=== PATIENT | male | born 1960 | race Two or more races ===

== ENCOUNTER 2020-01-21 19:35 | Inpatient (IN) | payer MEDICAID, OTHER ==
[~2020-01-21] VITALS: Ht 167.6 cm; Wt 81.6 kg
[2020-01-21 23:28] LABS: Basophils # (auto) 0 10 ^3/uL (0-0.2); Basophils % (auto) 0.4 % (0.0-2.0); Eosinophils # (auto) 0.1 10 ^3/uL (0-0.8); Hematocrit 44.1 % (41.0-53.0); Hemoglobin 14.5 g/dL (13.5-17.5); Lymphocytes # (auto) 0.6 10 ^3/uL (0.4-5.4); Lymphocytes % (auto) 5.4 % (10.0-50.0); Mean Corpuscular Hemoglobin 30.3 pg (28.0-32.0); Mean Corpuscular Hgb Conc. 32.9 g/dL (32.0-36.0); Mean Corpuscular Volume 92.3 fL (80.0-100.0); Monocytes # (auto) 0.6 10 ^3/uL (0-1.3); Monocytes % (auto) 5.5 % (0.0-12.0); Neutrophils # (auto) 10.3 10 ^3/uL (1.6-8.6); Neutrophils % (auto) 87.7 % (37.0-80.0); Platelet Count (auto) 319 10^3/uL (140-450); Red Blood Cells 4.78 10^6/uL (4.5-5.90); Red Cell Distribution Width 13.3 % (11.8-14.3); White Blood Cell 11.8 10^3/uL (4.4-10.8)
[2020-01-21 23:45] LABS: INR 1.07 (0.9-1.15); Partial Thromboplastin Time 27.1 sec (23.64-32.05)
[2020-01-21 23:49] LABS: Potassium 3.6 mmol/L (3.5-5.1)
[2020-01-21 23:52] LABS: Albumin 2.6 g/dL (3.4-5.0); Calcium 8.7 mg/dL (8.5-10.1)
[2020-01-22 00:08] LABS: Bilirubin, Total 0.5 mg/dL (0.2-1.0); Total Protein 7.7 g/dL (6.4-8.2)
[2020-01-22] MEDS ORDERED: DexAMETHasone SOD PHOS 10MG/1ML VIAL INJ IM ONE (08:15)
[2020-01-22] MEDS ORDERED: DOXYCYCLINE 100 MG TAB/CAP PO ONE (08:15)
[2020-01-22] MEDS ORDERED: ACETAMINOPHEN 325 MG TAB PO ONE (08:30)
[2020-01-22] MEDS ORDERED: NITROGLYCERIN 0.4 MG SL TAB SL PRN (10:15)
[2020-01-22] MEDS ORDERED: ACETAMINOPHEN 500 MG TAB PO ONE (10:15)
[2020-01-22] MEDS ORDERED: MORPHINE SULF INJ 2 MG/ML SYRINGE 1ML IV PRN (10:15)
[2020-01-22] MEDS ORDERED: cefTRIAXone 1GM/50ML D5W 50 ML IV ONE (10:15)
[2020-01-22] MEDS ORDERED: TEMAZEPAM 15 MG CAP PO PRN (11:15)
[2020-01-22] MEDS ORDERED: traMADol HCL 50 MG TAB PO PRN (11:15)
[2020-01-22] MEDS ORDERED: PROMETHAZINE HCL 25 MG/ML 1ML IV PRN (11:15)
[2020-01-22] MEDS ORDERED: LACTULOSE 20Gm/30ML SOLN PO PRN (11:15)
[2020-01-22] MEDS ORDERED: ACETAMINOPHEN 500 MG TAB PO PRN (11:15)
[2020-01-22] MEDS: levoFLOXacin 500MG 100 ML IV SCH (11:59)
[2020-01-22] MEDS: ENOXAPARIN SOD 40 MG/0.4 ML SYRINGE SC SCH ×2 (11:59→21:42)
--- NOTE | 2020-01-22 13:20 | NUR ---
Telemetry admit from [facility] admitted to Telemetry unit after SBAR received. Patient oriented to ARIANNA OSMAN RN primary RN, unit, room, bed, and unit policies regarding patient care and visiting hours. Patient now on continuous telemetry monitoring, tele box # 13 and telemetry reading on arrival to unit is SR. Patient placed on bedside oxygen, weighed by bedscale and encouraged to call if they need something. All questions and concerns addressed, patient verbalized understanding.
[2020-01-22] MEDS: ALBUTEROL SULF HFA 90MCG INH 200DOSE IN SCH ×2 (14:00→22:00)
--- NOTE | 2020-01-22 15:31 | NUR ---
Respiratory note: PT MDI 1400 TX MISSED. MDI NOT AVAILABLE AND THERAPIST UNAVAILABLE DUE TO CODE BLUE. PHARMACY CALLED AND MDI ORDERED.
[2020-01-22 16:24] VITALS: BP 116/78
--- NOTE | 2020-01-22 19:20 | NUR ---
Opening Shift Note Received report from pamela South RN. Assumed care of patient, awake and alert. No S/S of distress/SOB or pain. Saturating at 92% on 5LNC. Instructed on POC and to call for assist PRN, will continue to monitor for changes Q1hr and PRN. Bed placed in lowest position and call light within reach.
[2020-01-22 20:00] VITALS: BP 132/69
[2020-01-22] MEDS: FAMOTIDINE 20 MG TAB PO SCH (21:42)
[2020-01-22] MEDS: DexAMETHasone SOD PHOS 4 MG/1ML SDV INJ IV SCH (21:42)
[2020-01-22 22:00] VITALS: BP 132/69
[2020-01-22] MEDS ORDERED: BUDESONIDE (INHALATION) 0.5 MG/2 ML NEB NEB SCH ×2 (22:00)
[2020-01-23 01:10] VITALS: BP 132/69
--- NOTE | 2020-01-23 04:42 | NUR ---
ROUNDS Patient is resting in bed alert and awake, no distress noted, saturating at 93% on 5LNC. Patient denies pain.
[2020-01-23 05:00] VITALS: BP 127/65
[2020-01-23] MEDS: ALBUTEROL SULF HFA 90MCG INH 200DOSE IN SCH ×3 (07:40→22:46)
--- NOTE | 2020-01-23 07:40 | NUR ---
Respiratory note: MDI GIVEN AND TOLERATED WELL NO ADVERSE REACTION NOTED. HR 61, RR 16, SPO2 94% OM 5L N/C. BS ARE CLEAR AND DIMINISHED.
[2020-01-23 08:28] LABS: Basophils # (auto) 0 10 ^3/uL (0-0.2); Basophils % (auto) 0.4 % (0.0-2.0); Eosinophils # (auto) 0 10 ^3/uL (0-0.8); Eosinophils % (auto) 0.1 % (0.0-7.0); Hematocrit 44.9 % (41.0-53.0); Hemoglobin 14.9 g/dL (13.5-17.5); Lymphocytes % (auto) 10.5 % (10.0-50.0); Mean Corpuscular Hemoglobin 30.4 pg (28.0-32.0); Mean Corpuscular Hgb Conc. 33.2 g/dL (32.0-36.0); Mean Corpuscular Volume 91.5 fL (80.0-100.0); Monocytes % (auto) 10.7 % (0.0-12.0); Neutrophils # (auto) 7.2 10 ^3/uL (1.6-8.6); Neutrophils % (auto) 78.3 % (37.0-80.0); Nucleated Red Blood Cells % 0.2 %; Platelet Count (auto) 388 10^3/uL (140-450); Red Blood Cells 4.91 10^6/uL (4.5-5.90); Red Cell Distribution Width 12.9 % (11.8-14.3); White Blood Cell 9.1 10^3/uL (4.4-10.8)
[2020-01-23 08:50] LABS: Albumin 2.4 g/dL (3.4-5.0)
[2020-01-23 08:55] LABS: BUN/Creatinine Ratio 24.4; Bilirubin, Total 0.4 mg/dL (0.2-1.0); Total Protein 7.5 g/dL (6.4-8.2)
[2020-01-23 09:00] VITALS: BP 137/74
[2020-01-23] MEDS: DexAMETHasone SOD PHOS 4 MG/1ML SDV INJ IV SCH ×2 (10:03→21:37)
[2020-01-23] MEDS: ZINC SULFATE 220mg CAP or TAB PO SCH (10:04)
[2020-01-23] MEDS: ASCORBIC ACID 1,000 MG TAB PO SCH (10:04)
[2020-01-23] MEDS: levoFLOXacin 500MG 100 ML IV SCH (10:04)
[2020-01-23] MEDS: FAMOTIDINE 20 MG TAB PO SCH ×2 (10:04→21:37)
[2020-01-23] MEDS: CHOLECALCIFEROL (VITD3) 1,000UNIT=25mCg TAB PO SCH (10:04)
[2020-01-23] MEDS: ASPirin 81 mg TAB PO SCH (10:04)
[2020-01-23] MEDS: ENOXAPARIN SOD 40 MG/0.4 ML SYRINGE SC SCH ×2 (10:05→21:37)
[2020-01-23] MEDS: ENALAPRIL MALEATE 2.5 MG TAB PO SCH (10:07)
[2020-01-23 13:00] VITALS: BP 117/73
--- NOTE | 2020-01-23 14:20 | NUR ---
Respiratory note: MDI GIVEN AND TOLERATED WELL NO ADVERSE REACTION NOTED. HR 66, RR 16, SPO2 94% OM 5L N/C. BS ARE CLEAR AND DIMINISHED.
[2020-01-23 17:42] VITALS: BP 110/68
[2020-01-23] MEDS: AZITHROMYCIN 500MG/ 250ML 250 ML IV SCH (18:17)
--- NOTE | 2020-01-23 19:31 | NUR ---
Opening Shift Note Assumed care of patient after receiving report. Patient is awake and alert with no S/S of distress/SOB or pain. Call light within reach, bed in lowest position x2 side rails, HOB semi fowlers. Instructed on POC and to callfor assist PRN, will continue to monitor for changes Q1hr and PRN.
[2020-01-23 22:00] VITALS: BP 122/65
[2020-01-24 05:00] VITALS: BP 123/75
[2020-01-24] MEDS: ALBUTEROL SULF HFA 90MCG INH 200DOSE IN SCH ×3 (08:00→22:20)
[2020-01-24 09:00] VITALS: BP 113/69
[2020-01-24] MEDS: AZITHROMYCIN 500MG/ 250ML 250 ML IV SCH (09:02)
[2020-01-24] MEDS: DexAMETHasone SOD PHOS 4 MG/1ML SDV INJ IV SCH ×2 (09:02→21:25)
[2020-01-24] MEDS: ENOXAPARIN SOD 40 MG/0.4 ML SYRINGE SC SCH ×2 (09:02→21:26)
[2020-01-24] MEDS: FAMOTIDINE 20 MG TAB PO SCH ×2 (09:04→21:27)
[2020-01-24] MEDS: ZINC SULFATE 220mg CAP or TAB PO SCH (09:04)
[2020-01-24] MEDS: ASPirin 81 mg TAB PO SCH (09:04)
[2020-01-24] MEDS: ASCORBIC ACID 1,000 MG TAB PO SCH (09:04)
[2020-01-24] MEDS: CHOLECALCIFEROL (VITD3) 1,000UNIT=25mCg TAB PO SCH (09:05)
[2020-01-24] MEDS: ENALAPRIL MALEATE 2.5 MG TAB PO SCH (09:10)
[2020-01-24 13:00] VITALS: BP 147/80
[2020-01-24 17:00] VITALS: BP 105/85
--- NOTE | 2020-01-24 19:20 | NUR ---
Opening Shift Note Assumed care of patient after receiving report from KIKE Vazquez. Patient is awake and alert, with no S/S of distress/SOB or pain. Patient on 4L via NC. Call light within reach, bed in lowest position x2 side rails, HOB semi Fowlers. Instructed on POC and to call for assist PRN, will continue to monitor for changes Q1hr and PRN.
[2020-01-24 22:00] VITALS: BP 124/71
[2020-01-25 05:04] VITALS: BP 133/85
[2020-01-25] MEDS: ALBUTEROL SULF HFA 90MCG INH 200DOSE IN SCH ×3 (06:00→22:00)
--- NOTE | 2020-01-25 07:35 | NUR ---
Opening Shift note Assumed care of patient from NOC RN. Patient is aox4 no s/s of distress noted. Bed is in lowest locked position, side rails up x2, and call light is within reach. Updated patient on plan of care and patient verbalized understanding. Will continue to monitor q1hr and PRN.
[2020-01-25 09:00] VITALS: BP 134/82
--- NOTE | 2020-01-25 09:52 | NUR ---
Received call from MD Received call from Dr. Trujillo, new orders received, and per MD contact pediatric occupational therapist regarding clearance. Will follow through,will continue care.
[2020-01-25] MEDS: AZITHROMYCIN 500MG/ 250ML 250 ML IV SCH (10:50)
[2020-01-25] MEDS: CHOLECALCIFEROL (VITD3) 1,000UNIT=25mCg TAB PO SCH (10:52)
[2020-01-25] MEDS: ZINC SULFATE 220mg CAP or TAB PO SCH (10:52)
[2020-01-25] MEDS: ASCORBIC ACID 1,000 MG TAB PO SCH (10:52)
[2020-01-25] MEDS: ASPirin 81 mg TAB PO SCH (10:54)
[2020-01-25] MEDS: DexAMETHasone SOD PHOS 4 MG/1ML SDV INJ IV SCH ×2 (10:55→22:05)
[2020-01-25] MEDS: ENALAPRIL MALEATE 2.5 MG TAB PO SCH (10:55)
[2020-01-25] MEDS: ENOXAPARIN SOD 40 MG/0.4 ML SYRINGE SC SCH ×2 (10:55→22:05)
[2020-01-25] MEDS: FAMOTIDINE 20 MG TAB PO SCH ×2 (10:58→22:05)
--- NOTE | 2020-01-25 11:50 | NUR ---
Called Called Dr. Hanson, no answer left message. Awaiting call back.
--- NOTE | 2020-01-25 12:42 | NUR ---
Est energy needs [id number] kcal (20-25 kcal/kg BW 81.6kg) Est protein needs 65-82g (0.8-1g/kg BW 81.6g) Will reassess prn. Addendum: 01/25/20 at [address] Amended: Links added.
[2020-01-25 12:46] VITALS: BP 126/78
--- NOTE | 2020-01-25 13:30 | NUR ---
Ambulated patient Ambulated patient with 3L O2 via nasal canula and patient's oxygen saturation was 92-94%. Ambulated patient with out O2 on and patients oxygen was 83-87%, and patient became short of breath. Will notify MD, will continue care.
--- NOTE | 2020-01-25 16:02 | NUR ---
Received call from electronics worker Per Jas[facility] SW patients O2 will not be delivered until tomorrow and attending physician needs to sign paperwork for the O2. Will notify
--- NOTE | 2020-01-25 16:34 | NUR ---
Assessment Patient is a 59- year-old male. Assessment was completed with patient Khalida Ph:). Per Khalida prior to admission patient lived home with her and function independently. Per Ada patient can care for his own ADLs. Per Ada patient does not have any medical equipment now. Per Ada patient will return to his prior living arrangements post discharge and [facility] transportation needs to be arranged upon d/c day. Patient PCP is in [facility]. Advise Khalida there is a social service consult for home oxygen. Informed Khalida clinical information will be faxed to [employer]. Advised Khalida for patient to follow up with his primary doctor. Informed Khalida she has the right to participate in all discharge planning. Khalida verbalized understanding and agreed to discharge plan. Faxed clinical information to [employer] and [facility]. Martin Murray with [employer] they will deliver oxygen to the [facility] tomorrow morning. Obtain authorization from [facility] [id number]. Informed KIKE Ruiz. Addendum: 01/25/20 at 1635 by EZEQUIEL LIN Amended: Links added.
[2020-01-25 16:45] VITALS: BP 132/72
--- NOTE | 2020-01-25 19:00 | NUR ---
End of shift note Endorsed care to NOC RN Charles. No signs and symptoms of distress noted.
--- NOTE | 2020-01-25 19:30 | NUR ---
Opening Shift Note Assumed care of patient, awake and alert. No S/S of distress/SOB or pain. Instructed on POC and to call for assist PRN, will continue to monitor for changes Q1hr and PRN.
[2020-01-25 22:00] VITALS: BP 103/64
--- NOTE | 2020-01-26 02:00 | NUR ---
Patient off nasal canula for over 2 hours and tolerating well. O2 saturation was 96%. Patient educated on breathing exercises.
[2020-01-26 03:20] VITALS: BP 103/64
[2020-01-26 05:00] VITALS: BP 114/78
[2020-01-26 06:12] LABS: Hematocrit 45.2 % (41.0-53.0); Mean Corpuscular Hemoglobin 30.3 pg (28.0-32.0); Mean Corpuscular Hgb Conc. 33.3 g/dL (32.0-36.0); Mean Corpuscular Volume 91.1 fL (80.0-100.0); Platelet Count (auto) 442 10^3/uL (140-450); Red Blood Cells 4.96 10^6/uL (4.5-5.90); Red Cell Distribution Width 12.8 % (11.8-14.3); White Blood Cell 12.1 10^3/uL (4.4-10.8)
[2020-01-26 06:34] LABS: Albumin 2.5 g/dL (3.4-5.0); Calcium 8.8 mg/dL (8.5-10.1); Potassium 4.3 mmol/L (3.5-5.1)
[2020-01-26 06:39] LABS: Bilirubin, Total 0.4 mg/dL (0.2-1.0); Total Protein 6.8 g/dL (6.4-8.2)
[2020-01-26 06:45] LABS: Band Neutrophils % (manual) 0; Basophils % (manual) 0 (0.0-2.0); Blast Cells 0; Eosinophils % (manual) 0 (0-7); Metamyelocytes % 0; Myelocytes % 0; Promyelocytes % 0; Reactive Lymphocytes 0
--- NOTE | 2020-01-26 07:30 | NUR ---
Opening Shift note Assumed care of patient from NOC RN Charles. Patient is aox4 no sings and symptoms of distress noted. Bed is in lowest locked position, side rails up x2, and call light is within reach. Updated patient on plan of care and patient verbalized understanding. Will continue to monitor q1hr and PRN.
[2020-01-26 07:42] LABS: Lymphocytes % (manual) 7 (10.0-50.0); Monocytes % (manual) 7 (0-12)
[2020-01-26] MEDS: ALBUTEROL SULF HFA 90MCG INH 200DOSE IN SCH ×2 (07:50→14:00)
[2020-01-26 08:30] VITALS: BP 129/79
[2020-01-26] MEDS: AZITHROMYCIN 500MG/ 250ML 250 ML IV SCH (09:48)
[2020-01-26] MEDS: DexAMETHasone SOD PHOS 4 MG/1ML SDV INJ IV SCH (09:48)
[2020-01-26] MEDS: FAMOTIDINE 20 MG TAB PO SCH (09:49)
[2020-01-26] MEDS: ASPirin 81 mg TAB PO SCH (09:49)
[2020-01-26] MEDS: ZINC SULFATE 220mg CAP or TAB PO SCH (09:49)
[2020-01-26] MEDS: ENALAPRIL MALEATE 2.5 MG TAB PO SCH (09:50)
[2020-01-26] MEDS: CHOLECALCIFEROL (VITD3) 1,000UNIT=25mCg TAB PO SCH (09:50)
[2020-01-26] MEDS: ASCORBIC ACID 1,000 MG TAB PO SCH (09:50)
[2020-01-26] MEDS: ENOXAPARIN SOD 40 MG/0.4 ML SYRINGE SC SCH (09:51)
--- NOTE | 2020-01-26 10:15 | NUR ---
Received call from MD Received call from Dr. Ronnie france D/C. Updated MD that o2 still needs to be delivered before D/C. Per MD contact Dr. Lb france D/C outpatient follow ups. Will follow through, will continue care.
--- NOTE | 2020-01-26 10:19 | NUR ---
Mikey Hoskins message to Dr. Lb rosa D/CKasia Awaiting call back. Addendum: 01/26/20 at 1022 by NIKOS PROCTOR RN Title should read Mikey CISNEROS
--- NOTE | 2020-01-26 11:16 | NUR ---
Received call back from Received call back from Dr. Asher. Per MD patient can follow up as outpatient at a later time, and to continue home medications. Will notify attending MD Trujillo and will continue care.
--- NOTE | 2020-01-26 11:30 | NUR ---
Called attending MD Left messaged for Dr. Trujillo regarding update from . No new orders received, will continue care.
--- NOTE | 2020-01-26 12:12 | NUR ---
Received call from medical social consultant Received call from [employer]as[employer] medical social consultant, per Jasmina patients oxygen delivery is still pending, and patient needs a home health safety evaluation. Awaiting O2 delivery to D/C patient. Will continue care.
[2020-01-26 13:00] VITALS: BP 129/77
[2020-01-26 13:35] VITALS: BP 125/81
--- NOTE | 2020-01-26 15:16 | NUR ---
Returned called to [employer]. Returned call to Aide from [employer]. Faxed needed paperwork to her. . .
--- NOTE | 2020-01-26 16:34 | NUR ---
D/C Planning Received a followed up called from [facility] with [facility] advising me they needed to speak to bedside nurse regarding oxygen notes. Provided [facility] with nurse ext. [phone]. Received a second follow up called from [facility] advising me oxygen has been deliver to front lobby. Transportation has been arranged with [facility] [phone] with a 17:30 case picker time via gurney and oxygen. Transportation is aware patient is (+) COVID. RN Rosendo was informed.
[2020-01-26 16:35] VITALS: BP 125/81
--- NOTE | 2020-01-26 18:58 | NUR ---
Spoke to transportation Spoke with Rodger from [employer]. Per Rodger patient was not scheduled for fruit or nut picker, and did not have patient listed for fruit or nut picker. Informed Rodger that transportation was arranged by social worker school [employer]. Provided Rodger with authorization number from [facility] which is [id number]. Per Rodger he is unable to look up patient and is not able to complete transportation.
--- NOTE | 2020-01-26 19:03 | NUR ---
Informed charge nurse of transportation issue Updated NOC charge that patients transportation was not arranged. Patient is now refusing transportation and stating he can arrange a ride home on his own.
--- NOTE | 2020-01-26 19:20 | NUR ---
End of shift note Endorsed care and discharge and D/C to noc KIKE Badillo. No s/s of distress noted.
--- NOTE | 2020-01-26 19:30 | NUR ---
Opening Shift Note Received report from pamela Arguelles RN. Assumed care of patient, awake and alert. No S/S of distress/SOB or pain. Instructed on POC and to call for assist PRN, will continue to monitor for changes Q1hr and PRN. Patient is waiting for his own transfer that he is arranging at this moment.
--- NOTE | 2020-01-26 20:04 | NUR ---
Spoke to patient, per patient his transport will be here around 2029. Will monitor.
--- NOTE | 2020-01-26 20:59 | NUR ---
Patient's transportation is here.
--- NOTE | 2020-01-26 21:00 | NUR ---
Discharge instructions given as ordered. Encourage to follow up with PMD as instructed. All questions and concerns addressed. Patient verbalized understanding. Medication reconciliation form completed and copy given to patient. IV removed with catheter intact, pressure dressing applied. Telemetry unit returned to ICU. Patient taken to vehicle via wheelchair with all personal belongings, with oxygen tank set at 3LNC. Patient is saturating at 95% at time of departure. I was told by day nurse that Oxygen concentrator was delivered to patient's home. Patient is accompanied by staff, EVS and security. No distress noted at time of departure.
== END 2020-01-26 21:00 | disposition home or self-care (01) | DRG 137 ==
LOC: ER 19:37 → TELE 19:38 → TELE-E-ADS 01-22 14:34
PROVIDERS: ADMIT Internal Medicine; ATTEND Internal Medicine
DX: U07.1 COVID-19 (principal); J12.89 Other viral pneumonia; J96.01 Acute respiratory failure with hypoxia; E88.09 Other disorders of plasma-protein metabolism, not elsewhere classified; J98.11 Atelectasis; I24.8 Other forms of acute ischemic heart disease
CPT/HCPCS: 36415; 71045; 80053; 82550; 82728; 83605; 83880; 84443; 84484; 85007; 85025; 85027; 85379; 85610; 85652; 85730; 86141; 87040; 87804; 87880; 93005; 93970; 94640; 96365; 96367; 96372; G0378; J0696; J1100; J1956